=== PATIENT | male | born 1970 | race Caucasian/White ===

== ENCOUNTER → 2016-05-12 | Outpatient (CLI) | payer BC ==
--- NOTE | 2016-05-12 10:46 | US ---
EXAMINATION TYPE: US scrotum with doppler. Grayscale and color Doppler Duplex imaging performed of magn[facility] kitchen scrotum. DATE OF EXAM: 05/12/2016 10:37 AM COMPARISON: NONE CLINICAL HISTORY: N50.812 L Testicular Pain. Patient felt left testicular pain this morning and felt a lump, pea size, posterior left testicle. EXAM MEASUREMENTS: TESTICLES: Right Testicle: 4.2 x 1.9 x 3.2 cm Left Testicle: 3.5 x 1.8 x 2.5 cm EPIDIDYMIS HEAD: Right Epididymis: 1.1 x 0.9 cm Left Epididymis: 0.9 x 0.7 cm Doppler performed to assess for testicular vascularity; good bilateral color flow and waveforms are s een. TECHNOLOGIST IMPRESSION: scanned over area of pain and area of lump, no definite abnormality noted. Symmetry view shows no suspicious skin thickening bilaterally. Last few images an area of palpable ab normality show slightly prominent vessels. No suspicious mass is seen. IMPRESSION: Fairly unremarkable study
== END | disposition home or self-care (01) ==
LOC: RADUSWWP 10:08
PROVIDERS: ATTEND Family Medicine
DX: N50.812 Left testicular pain (principal)
CPT/HCPCS: 76870; 93975

== ENCOUNTER 2017-04-13 09:33 | Observation (INO) | payer BC ==
[2017-04-13] MEDS ORDERED: NITROGLYCERIN OINT 1 INCH/GM PACKET TOPICAL STA (10:04)
[2017-04-13] MEDS ORDERED: ASPIRIN 81 MG PO STA (10:04)
--- NOTE | 2017-04-13 10:06 | ED ---
General Adult HPI - General Chief complaint: Chest Pain Stated complaint: CHEST PAIN Time Seen by Provider: 04/13/17 09:52 Source: patient, RN notes reviewed Mode of arrival: ambulatory Limitations: no limitations - History of Present Illness Initial comments: Patient is a pleasant 46-year-old male presenting to the emergency Department with chest discomfort. Patient had minimal discomfort earlier this morning. Majority of symptoms started around an hour and a half ago. Discomfort is mild at this time. Patient does have some episodes of increasing discomfort that is short lasting. Discomfort feels like a cold ache. There is radiation towards left arm. No diaphoresis. Patient has had some very mild nausea and shortness of breath. No history of similar symptoms previously. - Related Data Home Medications Medication Instructions Recorded Confirmed Aspirin 81 mg PO BID 01/29/15 04/13/17 Cholecalciferol [Vitamin D3] 1,000 unit PO Q48H 01/29/15 04/13/17 Clindamycin Phosphate [Cleocin T] 1 applicate TOPICAL BID 01/29/15 04/13/17 Levothyroxine Sodium [Synthroid] 25 mcg PO DAILY 01/29/15 04/13/17 Loratadine [Claritin] 10 mg PO DAILY 01/29/15 04/13/17 Mometasone Furoate [Nasonex Nasal 2 spray EA NOSTRIL DAILY 01/29/15 04/13/17 [place]] Niacin [Niacin ER] 500 mg PO BID 01/29/15 04/13/17 Omeprazole [PriLOSEC] 20 mg PO DAILY PRN 01/29/15 04/13/17 Fish Oil/Dha/Epa [Fish Oil 1,200 1 cap PO DAILY 03/09/16 04/13/17 mg Fish Oil] Meclizine [Antivert] 12.5 mg PO DAILY PRN 03/09/16 04/13/17 Metoprolol Tartrate [Lopressor] 100 mg PO BID 03/09/16 04/13/17 Multivitamin/Iron/Folic Acid 1 tab PO DAILY 03/09/16 04/13/17 [Centrum Complete Multivit Tab] Atorvastatin Calcium [Lipitor] 40 mg PO HS 04/13/17 04/13/17 Meloxicam [Mobic] 15 mg PO DAILY 04/13/17 04/13/17 metFORMIN HCL [Glucophage] 500 mg PO BID 04/13/17 04/13/17 Previous Rx's Medication Instructions Recorded Naproxen 500 mg PO Q12HR 14 Days tab 03/09/16 Allergies Allergy/AdvReac Type Severity Reaction Status Date / Time Penicillins AdvReac Vomiting Verified 04/13/17 10:08 sulfamethoxazole AdvReac Vomiting Verified 04/13/17 10:08 [From Bactrim] trimethoprim [From Bactrim] AdvReac Vomiting Verified 04/13/17 10:08 Review of Systems ROS Statement: Those systems with pertinent positive or pertinent negative responses have been documented in the HPI. ROS Other: All systems not noted in ROS Statement are negative. Constitutional: Denies: fever Eyes: Denies: eye pain ENT: Denies: ear pain Respiratory: Denies: cough Cardiovascular: Reports: chest pain Endocrine: Reports: fatigue Gastrointestinal: Reports: nausea Genitourinary: Denies: dysuria Musculoskeletal: Denies: back pain Skin: Denies: rash Neurological: Denies: weakness Past Medical History Past Medical History: Coronary Artery Disease (CAD), GERD/Reflux, Hyperlipidemia , Hypertension, Thyroid Disorder History of Any Multi-Drug Resistant Organisms: None Reported Past Surgical History: Ablation, Heart Catheterization Past Psychological History: No Psychological Hx Reported Smoking Status: Never smoker Past Alcohol Use History: Occasional Past Drug Use History: None Reported General Exam Limitations: no limitations General appearance: alert, in no apparent distress Head exam: Present: atraumatic Eye exam: Present: normal appearance, PERRL ENT exam: Present: normal oropharynx Neck exam: Present: normal inspection Respiratory exam: Present: normal lung sounds bilaterally Cardiovascular Exam: Present: regular rate, normal rhythm Expanded Peripheral pulses: 2+: Radial (R), Radial (L), Dorsalis Pedis (R), Dorsalis Pedis (L) GI/Abdominal exam: Present: soft. Absent: tenderness Extremities exam: Present: normal inspection. Absent: pedal edema, calf tenderness Neurological exam: Present: alert Psychiatric exam: Present: normal affect, normal mood Skin exam: Present: normal color Course Vital Signs 04/13/17 04/13/17 04/13/17 09:37 09:53 11:00 Temperature 97.9 F Pulse Rate 80 78 68 Respiratory 18 18 18 Rate Blood Pressure 156/87 153/87 122/77 O2 Sat by Pulse 98 96 Oximetry EKG Findings - EKG Comments: EKG Findings:: Normal sinus rhythm 77. KS 156. QRS 86. QT 278. QTC 427. Normal axis. Normal QRS. No acute ST change. Medical Decision Making - Medical Decision Making Patient reevaluated and resting comfortably in bed. Case discussed with practitioner Sanjana, who will admit for Dr. hernandez, covering for Dr. Roland. Patient's symptoms are not clinically consistent with pneumonia. Patient will be covered with antibiotics for possible early pneumonia. Patient does not meet sepsis criteria at this time. - Lab Data Result diagrams: 04/13/17 09:50 04/13/17 09:50 Lab Results 04/13/17 04/13/17 04/13/17 Range/Units 09:50 09:50 09:50 WBC 12.4 H (3.8-10.6) k/uL RBC 5.42 (4.30-5.90) m/uL Hgb 15.4 (13.0-17.5) gm/dL Hct 47.3 (39.0-53.0) % MCV 87.4 (80.0-100.0) fL MCH 28.4 (25.0-35.0) pg MCHC 32.5 (31.0-37.0) g/dL RDW 13.2 (11.5-15.5) % Plt Count 333 (150-450) k/uL Neutrophils % 67 % Lymphocytes % 23 % Monocytes % 6 % Eosinophils % 1 % Basophils % 1 % Neutrophils # 8.3 H (1.3-7.7) k/uL Lymphocytes # 2.8 (1.0-4.8) k/uL Monocytes # 0.8 (0-1.0) k/uL Eosinophils # 0.2 (0-0.7) k/uL Basophils # 0.1 (0-0.2) k/uL PT (9.0-12.0) sec INR (<1.2) APTT (22.0-30.0) sec D-Dimer (<0.60) mg/L FEU Sodium 145 (137-145) mmol/L Potassium 4.9 (3.5-5.1) mmol/L Chloride 106 (98-107) mmol/L Carbon Dioxide 28 (22-30) mmol/L Anion Gap 11 mmol/L BUN 19 (9-20) mg/dL Creatinine 0.83 (0.66-1.25) mg/dL Est GFR (MDRD) Af Amer >60 (>60 ml/min/1.73 sqM) Est GFR (MDRD) Non-Af >60 (>60 ml/min/1.73 sqM) Glucose 99 (74-99) mg/dL Calcium 9.6 (8.4-10.2) mg/dL Magnesium 2.2 (1.6-2.3) mg/dL Total Bilirubin 0.5 (0.2-1.3) mg/dL AST 29 (17-59) U/L ALT 63 (21-72) U/L Alkaline Phosphatase 78 (38-126) U/L Total Creatine Kinase 72 (55-170) U/L CK-MB (CK-2) 0.6 (0.0-2.4) ng/mL CK-MB (CK-2) Rel Index 0.8 Troponin I <0.012 (0.000-0.034) ng/mL Total Protein 6.9 (6.3-8.2) g/dL Albumin 4.3 (3.5-5.0) g/dL 04/13/17 Range/Units 09:50 WBC (3.8-10.6) k/uL RBC (4.30-5.90) m/uL Hgb (13.0-17.5) gm/dL Hct (39.0-53.0) % MCV (80.0-100.0) fL MCH (25.0-35.0) pg MCHC (31.0-37.0) g/dL RDW (11.5-15.5) % Plt Count (150-450) k/uL Neutrophils % % Lymphocytes % % Monocytes % % Eosinophils % % Basophils % % Neutrophils # (1.3-7.7) k/uL Lymphocytes # (1.0-4.8) k/uL Monocytes # (0-1.0) k/uL Eosinophils # (0-0.7) k/uL Basophils # (0-0.2) k/uL PT 9.8 (9.0-12.0) sec INR 1.0 (<1.2) APTT 22.8 (22.0-30.0) sec D-Dimer <0.17 (<0.60) mg/L FEU Sodium (137-145) mmol/L Potassium (3.5-5.1) mmol/L Chloride (98-107) mmol/L Carbon Dioxide (22-30) mmol/L Anion Gap mmol/L BUN (9-20) mg/dL Creatinine (0.66-1.25) mg/dL Est GFR (MDRD) Af Amer (>60 ml/min/1.73 sqM) Est GFR (MDRD) Non-Af (>60 ml/min/1.73 sqM) Glucose (74-99) mg/dL Calcium (8.4-10.2) mg/dL Magnesium (1.6-2.3) mg/dL Total Bilirubin (0.2-1.3) mg/dL AST (17-59) U/L ALT (21-72) U/L Alkaline Phosphatase (38-126) U/L Total Creatine Kinase (55-170) U/L CK-MB (CK-2) (0.0-2.4) ng/mL CK-MB (CK-2) Rel Index Troponin I (0.000-0.034) ng/mL Total Protein (6.3-8.2) g/dL Albumin (3.5-5.0) g/dL - Radiology Data Radiology results: image reviewed (Chest x-ray has questionable density middle lobe and left perihilar could reflect developing pneumonia.) Disposition Clinical Impression: Chest pain Disposition: ADMITTED IP TO THIS [facility] Referrals: Dany Roland MD [Primary Care Provider] - 1-2 days Decision Time: 11:55
[2017-04-13 10:14] LABS: Basophils # (A) 0.1 k/uL (0-0.2); Basophils % (A) 1 %; Eosinophils # (A) 0.2 k/uL (0-0.7); Eosinophils % (A) 1 %; HCT 47.3 % (39.0-53.0); HGB 15.4 gm/dL (13.0-17.5); Lymphocytes # (A) 2.8 k/uL (1.0-4.8); Lymphocytes % (A) 23 %; MCH 28.4 pg (25.0-35.0); MCHC 32.5 g/dL (31.0-37.0); MCV 87.4 fL (80.0-100.0); Mean Platelet Volume 6.7; Monocytes # (A) 0.8 k/uL (0-1.0); Monocytes % (A) 6 %; Neutrophils # (A) 8.3 k/uL (1.3-7.7); Neutrophils % (A) 67 %; Platelet Count 333 k/uL (150-450); RBC 5.42 m/uL (4.30-5.90); RDW 13.2 % (11.5-15.5); WBC 12.4 k/uL (3.8-10.6)
[2017-04-13 10:23] LABS: ALT 63 U/L (21-72); AST 29 U/L (17-59); Albumin 4.3 g/dL (3.5-5.0); Alkaline Phosphatase 78 U/L (38-126); Anion Gap 11 mmol/L; Blood Urea Nitrogen 19 mg/dL (9-20); Calcium 9.6 mg/dL (8.4-10.2); Carbon Dioxide 28 mmol/L (22-30); Chloride 106 mmol/L (98-107); Glucose 99 mg/dL (74-99); Magnesium 2.2 mg/dL (1.6-2.3); Potassium 4.9 mmol/L (3.5-5.1); Sodium 145 mmol/L (137-145); Total Bilirubin 0.5 mg/dL (0.2-1.3); Total Protein 6.9 g/dL (6.3-8.2)
[2017-04-13 10:29] LABS: D-Dimer <0.17 mg/L FEU (<0.60); Partial Thromboplastin Time 22.8 sec (22.0-30.0); Prothrombin Time 9.8 sec (9.0-12.0)
--- NOTE | 2017-04-13 10:31 | XR ---
EXAMINATION TYPE: XR chest 2V DATE OF EXAM: 04/13/2017 COMPARISON: NONE HISTORY: Chest pain TECHNIQUE: Frontal and lateral views of the chest are obtained. FINDINGS: Increased density within the region of the right middle lobe as well as the left perihilar region may reflect developing pneumonia or pneumonitis. No evidence for pneumothorax. No pleural effusion. The cardiac silhouette size is within normal limits. The osseous structures are grossly intact. IMPRESSION: 1. Increased density within the region of the right middle lobe as well as the left perihilar region may reflect developing pneumonia or pneumonitis.
[2017-04-13 10:40] LABS: Creatine Kinase 72 U/L (55-170)
[2017-04-13 10:54] LABS: Creatine Kinase MB 0.6 ng/mL (0.0-2.4); Troponin I <0.012 ng/mL (0.000-0.034)
[2017-04-13] MEDS ORDERED: NITROGLYCERIN SL TABS 0.4 MG TAB SUBLINGUAL PRN (11:56)
[2017-04-13] MEDS ORDERED: PNEUMONIA PROTOCOL UTILIZED 1 EACH MISC PO PRN (11:57)
[2017-04-13] MEDS ORDERED: LEVOFLOXACIN 750MG-D5W PMX 750 MG in DEXTROSE/WATER 1 150ML.BAG IVPB STA (11:57)
[2017-04-13] MEDS: NITROGLYCERIN OINT 1 INCH/GM PACKET TOPICAL SCH ×2 (12:24→22:54)
[2017-04-13] MEDS ORDERED: PANTOPRAZOLE 40 MG TABLET PO PRN (15:31)
[2017-04-13 16:28] LABS: Creatine Kinase 55 U/L (55-170)
[2017-04-13 16:42] LABS: Creatine Kinase MB 0.3 ng/mL (0.0-2.4); Troponin I <0.012 ng/mL (0.000-0.034)
--- NOTE | 2017-04-13 16:52 | HP ---
HISTORY AND PHYSICAL DATE OF ADMISSION: 04/13/17 PRESENTING COMPLAINT: Chest pain. HISTORY OF PRESENTING COMPLAINT: Pleasant [address] Roland. Chronic stable medical conditions include GERD, hyperlipidemia, hypothyroid, irritable bowel syndrome, diabetes, and herniated lumbar disc. The patient has a history of paroxysmal supraventricular tachycardia. Has had 2 attempts at ablation in [facility]. The patient had used beta blockers and had symptoms on and off for some time in the past. Today in the morning around 6 o'clock, the patient was getting dressed. He felt a little bit off. When he went to work he started not feeling well and noted some chest discomfort coming in waves. There was no shortness of breath, minimal dizziness. No perspiration though he had some hot flashes, lasted for a few hours, decided to come into the ER. The patient does not remember having had a cardiac catheterization, but has a very strong family history of coronary artery disease. The patient is seen by me in the ER. REVIEW OF SYSTEMS: CONSTITUTIONAL: Tired. HEENT: None. RESPIRATORY: As above. CARDIOVASCULAR: As above. GASTROINTESTINAL: Heartburn. GENITOURINARY: None. MUSCULOSKELETAL: Some lower back pain from herniated disc. DERMATOLOGICAL: None. HEMATOLOGIC: None. LYMPHATIC: None. PSYCHIATRY: None. NEUROLOGICAL: None. PAST MEDICAL HISTORY: GERD, hyperlipidemia, hypothyroid, paroxysmal supraventricular tachycardia with multiple attempts at ablation in the past in [facility]. Irritable bowel syndrome, diabetes, lumbar disc herniated, bilateral feet neuromas. PAST SURGICAL HISTORY: Ablation, cardiac catheterization. SOCIAL HISTORY: with 2 children. Employed. No smoking. Alcohol occasionally. FAMILY HISTORY: Brother at age of 42 from a [place]. Father had coronary artery disease. Both the grandparents have coronary artery disease. HOME MEDICATIONS: 1. Mobic 50 mg p.o. daily. 2. Antivert 12.5 p.o. daily p.r.n. 3. Lipitor 40 mg q.h.s. 4. Glucophage 100 mg p.o. b.i.d. 5. Prilosec 20 mg p.o. daily p.r.n. 6. Niacin ER 500 mg p.o. b.i.d. 7. Naproxen 100 mg p.o. q.12. 8. Centrum Complete 1 tab p.o. daily. 9. Nasonex 2 sprays each nostril daily. 10.Lopressor 100 mg p.o. b.i.d. 11.Claritin 10 mg p.o. daily. 12.Synthroid 25 mcg p.o. daily. 13.Fish oil 12 from 1200 mg p.o. daily. 14.Clindamycin topical b.i.d. 15.Vitamin D3 1000 units p.o. q.48 hours. 16.Aspirin 81 mg p.o. b.i.d. ALLERGIES: PENICILLIN, BACTRIM. PHYSICAL EXAMINATION: Temperature 97.9, pulse 86, respiratory rate 18, blood pressure 156/87, pulse ox 98% on room air. GENERAL APPEARANCE: Well built, BMI 31.9, lying in bed, not in distress. EYES: Pupils equal. Conjunctivae normal.. HEENT: Oral cavity normal. NECK: JVD not raised. Mass not palpable. RESPIRATORY: Effort normal. Lungs are clear. CARDIOVASCULAR: First and second sounds normal. No edema. ABDOMEN: Soft, nontender. Liver and spleen not palpable. LYMPHATIC: No lymph not palpable in the neck or axillae. PSYCHIATRY: Alert and oriented x3. Mood and affect normal. NEUROLOGICAL: Pupils equal. Cranial nerves grossly intact. Power and sensation grossly intact. INVESTIGATIONS: White count 12.5, hemoglobin 13.4, potassium 4.9, BUN and creatinine normal. EKG normal sinus rhythm. ASSESSMENT: 1. This is a patient with very strong family history presents with some atypical sounding chest pain. Has a history of paroxysmal supraventricular tachycardia with 2 failed ablations in the past. Given the very strong family history, this could well be unstable angina and needs to be further ruled out. Initial troponin is negative. We will keep the patient on telemetry to rule out any arrhythmias. 2. Gastroesophageal reflux disease. 3. Hyperlipidemia. 4. Hypothyroid. 5. Irritable bowel syndrome. PLAN: Serial cardiac enzymes in place, patient on telemetry. Home medications resumed. Will hold off patient is on both Claritin and Antivert. Will hold off both. Hold off the NSAIDs for right now. Cardiology was consulted. Care was discussed with the patient. MMODL / IJN: [id number] /
[2017-04-13 17:24] LABS: Glucose,Whole Blood 120 mg/dL (75-99)
[2017-04-13 20:33] LABS: Glucose,Whole Blood 141 mg/dL (75-99)
[2017-04-13] MEDS: metFORMIN 500 MG TAB PO SCH (20:49)
[2017-04-13] MEDS: NIACIN TR 250 MG CAPSULE.ER PO SCH (20:49)
[2017-04-13] MEDS: METOPROLOL TARTRATE 50 MG TAB PO SCH (20:49)
[2017-04-13] MEDS: ASPIRIN 81 MG PO SCH (20:49)
[2017-04-13] MEDS ORDERED: ATORVASTATIN 40 MG TAB PO SCH (21:00)
[2017-04-13 22:05] LABS: Creatine Kinase 49 U/L (55-170)
[2017-04-13 22:18] LABS: Creatine Kinase MB 0.2 ng/mL (0.0-2.4); Troponin I <0.012 ng/mL (0.000-0.034)
[2017-04-14] MEDS: NITROGLYCERIN OINT 1 INCH/GM PACKET TOPICAL SCH ×2 (00:17→05:20)
[2017-04-14 02:17] LABS: Cholesterol 134 mg/dL (<200); HDL Cholesterol 34 mg/dL (40-60); LDL Cholesterol,Calculated 69 mg/dL (0-99); Triglycerides 153 mg/dL (<150)
[2017-04-14] MEDS ORDERED: LEVOTHYROXINE 25 MCG TAB PO SCH (06:30)
[2017-04-14 08:06] LABS: Glucose,Whole Blood 107 mg/dL (75-99)
[2017-04-14] MEDS ORDERED: DOBUTamine DRIP for NUC MED 250 MG in DEXTROSE/WATER 1 250ML.BAG IV ONE (08:34)
[2017-04-14 08:39] VITALS: RESP 16
--- NOTE | 2017-04-14 08:43 | XR ---
EXAMINATION TYPE: XR chest 2V DATE OF EXAM: 04/14/2017 COMPARISON: Prior chest x-ray 04/13/2017 HISTORY: Pneumonia TECHNIQUE: Frontal and lateral views of the chest are obtained. FINDINGS: Bandlike area of increased attenuation present in the right middle lobe likely reflects at electasis. No pneumothorax or pleural effusion. Cardiac mediastinal silhouette, pulmonary vascularity and loulou are stable. There are overlying cardiac leads. No evident airspace disease. IMPRESSION: Some minimal atelectasis.
--- NOTE | 2017-04-14 08:46 | P.CRDCN ---
History of Present Illness Consult date: 04/14/17 History of present illness: Mr. Benntet is a pleasant 46-year-old male with past medical history significant for diabetes mellitus, dyslipidemia, paroxysmal supraventricular tachycardia with 2 failed ablations in [place] and gastroesophageal reflux disease. He follows with Dr. Burton in the office. He was getting ready for work this morning and drying off after a shower when he noticed a sensation in his chest of discomfort. He describes it as a tender feeling right near the nipple. The pain has been intermittent in nature all day with varying intensity. He denies associated shortness of breath, dizziness, nausea, vomiting, palpitations or diaphoresis. He does however recall at one point having some tingling in his left hand when he was feeling the pain. EKG on arrival is sinus mechanism with no acute ST or T-wave abnormalities. Chest xray shows increased density rightmiddle lobe as well as left perihilar region , possibly reflective of pneumonia. He has been started on antibiotics and a repeat xray has been ordered. Laboratory data reviewed, WBC 12.4, hgb 15.4, plt 333, d-dimer negative, potassium 4.9, magnesium 2.2, creatinine 0.83, cardiac enzymes negative x3 Current cardiac medications include aspirin 81 mg daily, atorvastatin 40 mg daily, niacin 500 mg BID and lopressor 100 mg BID. Most recent echocardiogram done in the office 11/2014 shows preserved LV function with EF 60% with mild MR and TR. He also had a negative Lexiscan stress test at that time. Review of Systems CONSTITUTIONAL: Denies fever. Denies chills. EYES: Denies blurred vision. Denies vision changes. Denies eye pain. EARS, NOSE, MOUTH & THROAT: Denies headache. Denies sore throat. Denies ear pain. CARDIOVASCULAR: Complains of chest tenderness at the left nipple. Denies shortness of breath. Denies orthopnea. Denies PND. Denies palpitations. RESPIRATORY: Denies cough. GASTROINTESTINAL: Denies abdominal pain. Denies diarrhea. Denies constipation. Denies nausea. Denies vomiting. MUSCULOSKELETAL: Denies myalgias. INTEGUMENTARY: Denies pruitis. Denies rash. NEUROLOGIC: Denies numbness. Denies tingling. Denies weakness. PSYCHIATRIC: Denies anxiety. Denies depression. ENDOCRINE: Denies fatigue. Denies weight change. Denies polydipsia. Denies polyurina. GENITOURINARY: Denies burning, hematuria or urgency with micturation. HEMATOLOGIC: Denies history of anemia. Denies bleeding. Past Medical History Past Medical History: GERD/Reflux, Hyperlipidemia, Pneumonia, Thyroid Disorder Additional Past Medical History / Comment(s): PSVT, IBS, NIDDM type II-pt states "borderline" and place on medication early, vertigo occasionally with sinus problems, sinus infections, ear infections, pneumonias, bronchitis, protruding lumbar discs/back pain, bilateral feet neuromas (R foot worse). History of Any Multi-Drug Resistant Organisms: None Reported Past Surgical History: Ablation, Heart Catheterization Additional Past Surgical History / Comment(s): Past attempted cardiac ablations x2, EGD, colonoscopies, lower back injections. Past Anesthesia/Blood Transfusion Reactions: No Reported Reaction Smoking Status: Never smoker - Past Family History Brother(s) Family Medical History: Myocardial Infarction ([place]) Additional Family Medical History / Comment(s): Brother at the age of 42 yrs from a [place]. He also was a smoker, drinker and used drugs per pt. Father Family Medical History: CVA/TIA, Myocardial Infarction ([place]) Additional Family Medical History / Comment(s): Father had multiple MIs. He had a CVA. He in his sleep at the age of 64 yrs. Mother Family Medical History: Hypertension, Myocardial Infarction ([place]) Additional Family Medical History / Comment(s): Mother had depression, IBS and MIs. She of interstinal ischemia at the age of 60 yrs. Medications and Allergies Home Medications Medication Instructions Recorded Confirmed Type Aspirin 81 mg PO BID 01/29/15 04/13/17 History Cholecalciferol [Vitamin D3] 1,000 unit PO Q48H 01/29/15 04/13/17 History Clindamycin Phosphate [Cleocin T] 1 applicate TOPICAL BID 01/29/15 04/13/17 History Levothyroxine Sodium [Synthroid] 25 mcg PO DAILY 01/29/15 04/13/17 History Loratadine [Claritin] 10 mg PO DAILY 01/29/15 04/13/17 History Mometasone Furoate [Nasonex Nasal 2 spray EA NOSTRIL DAILY 01/29/15 04/13/17 History [place]] Niacin [Niacin ER] 500 mg PO BID 01/29/15 04/13/17 History Omeprazole [PriLOSEC] 20 mg PO DAILY PRN 01/29/15 04/13/17 History Fish Oil/Dha/Epa [Fish Oil 1,200 1 cap PO DAILY 03/09/16 04/13/17 History mg Fish Oil] Meclizine [Antivert] 12.5 mg PO DAILY PRN 03/09/16 04/13/17 History Metoprolol Tartrate [Lopressor] 100 mg PO BID 03/09/16 04/13/17 History Multivitamin/Iron/Folic Acid 1 tab PO DAILY 03/09/16 04/13/17 History [Centrum Complete Multivit Tab] Naproxen 500 mg PO Q12HR 14 Days tab 03/09/16 04/13/17 Rx Atorvastatin Calcium [Lipitor] 40 mg PO HS 04/13/17 04/13/17 History Meloxicam [Mobic] 15 mg PO DAILY 04/13/17 04/13/17 History metFORMIN HCL [Glucophage] 500 mg PO BID 04/13/17 04/13/17 History Allergies Allergy/AdvReac Type Severity Reaction Status Date / Time Penicillins AdvReac Vomiting Verified 04/13/17 10:08 sulfamethoxazole AdvReac Vomiting Verified 04/13/17 10:08 [From Bactrim] trimethoprim [From Bactrim] AdvReac Vomiting Verified 04/13/17 10:08 Physical Exam Vitals: Vital Signs Temp Pulse Pulse Resp BP BP Pulse Ox 04/13/17 13:50 97.8 F 78 18 140/74 93 L 04/13/17 13:41 97.4 F L 81 18 118/61 98 04/13/17 11:57 78 18 130/68 98 04/13/17 11:00 68 18 122/77 96 04/13/17 09:53 78 18 153/87 04/13/17 09:37 97.9 F 80 18 156/87 98 Intake and Output 04/12/17 04/13/17 04/13/17 22:59 06:59 14:59 Other: Weight 100.8 kg Patient Weight 04/14/17 06:59 Weight 100.8 kg Blood pressure 146/77 heart rate 72 afebrile GENERAL: This is a 46-year-old male in no apparent distress at the time of my examination. HEENT: Head is atraumatic, normocephalic. Pupils are equal, round. Sclerae anicteric. Conjunctivae are clear. Mucous membranes of the mouth are moist. Neck is supple. There is no jugular venous distention. No carotid bruit is heard. LUNGS: Clear to auscultation no wheezes, rales or rhonchi. No chest wall tenderness is noted on palpation or with deep breathing. HEART: Regular rate and rhythm without murmurs, rubs or gallops. S1 and S2 heard. ABDOMEN: Soft, nontender. Bowel sounds are heard. No organomegaly noted. EXTREMITIES: 2+ peripheral pulses with no evidence of peripheral edema and no calf tenderness noted. NEUROLOGIC: Patient is awake, alert and oriented x3. Results 04/13/17 09:50 04/13/17 09:50 Cardiac Enzymes 04/13/17 04/13/17 Range/Units 09:50 09:50 AST 29 (17-59) U/L CK-MB (CK-2) 0.6 (0.0-2.4) ng/mL Troponin I <0.012 (0.000-0.034) ng/mL Coagulation 04/13/17 Range/Units 09:50 PT 9.8 (9.0-12.0) sec APTT 22.8 (22.0-30.0) sec CBC 04/13/17 Range/Units 09:50 WBC 12.4 H (3.8-10.6) k/uL RBC 5.42 (4.30-5.90) m/uL Hgb 15.4 (13.0-17.5) gm/dL Hct 47.3 (39.0-53.0) % Plt Count 333 (150-450) k/uL Comprehensive Metabolic Panel 04/13/17 Range/Units 09:50 Sodium 145 (137-145) mmol/L Potassium 4.9 (3.5-5.1) mmol/L Chloride 106 (98-107) mmol/L Carbon Dioxide 28 (22-30) mmol/L BUN 19 (9-20) mg/dL Creatinine 0.83 (0.66-1.25) mg/dL Glucose 99 (74-99) mg/dL Calcium 9.6 (8.4-10.2) mg/dL AST 29 (17-59) U/L ALT 63 (21-72) U/L Alkaline Phosphatase 78 (38-126) U/L Total Protein 6.9 (6.3-8.2) g/dL Albumin 4.3 (3.5-5.0) g/dL Current Medications Generic Name Dose Route Start Last Admin Trade Name Freq PRN Reason Stop Dose Admin Aspirin 81 mg 04/13/17 21:00 Aspirin PO BID REPLACED BY [facility] Atorvastatin Calcium 40 mg 04/13/17 21:00 Lipitor PO HS DASHA Levofloxacin 750 mg 04/14/17 12:00 Levaquin PO 04/19/17 12:01 Q24H REPLACED BY [facility] Miscellaneous Information 1 each 04/13/17 11:57 Pneumonia Protocol Utilized PO ONCE PRN Per Protocol Nitroglycerin 1 inch 04/13/17 12:00 04/13/17 12:24 Nitro-Bid Oint TOPICAL 1 inch Q6HR REPLACED BY [facility] Administration Nitroglycerin 0.4 mg 04/13/17 11:56 Nitrostat SUBLINGUAL Q5M PRN Chest Pain Non-Formulary Medication 100 mg 04/13/17 21:00 Metoprolol Tartrate [Lopressor] PO BID DASHA Non-Formulary Medication 500 mg 04/13/17 21:00 Niacin [Niacin Er] PO BID REPLACED BY [facility] Intake and Output 04/12/17 04/13/17 04/13/17 22:59 06:59 14:59 Other: Weight 100.8 kg Patient Weight 04/14/17 06:59 Weight 100.8 kg 04/13/17 09:50 04/13/17 09:50 Assessment and Plan Assessment: ASSESSMENT 1. Chest pain, atypical 2. Dyslipidemia 3. History of paroxysmal supraventricular tachycardia 4. Obesity 5. Diabetes mellitus PLAN Obtain 2D echocardiogram and doppler study to assess cardiac structure and function. Perform dobutamine stress echocardiogram to evaluate for stress induced ischemia. The above impression and plan of care have been discussed and directed by the signing physician. Yamile Qiu, nurse practitioner, acting as scribe for signing physician.
[2017-04-14] MEDS ORDERED: MELOXICAM 7.5 MG TAB PO SCH (09:00)
[2017-04-14] MEDS ORDERED: ASPIRIN 325 MG TAB PO SCH (09:00)
[2017-04-14] MEDS: ASPIRIN 81 MG PO SCH (10:37)
[2017-04-14] MEDS: metFORMIN 500 MG TAB PO SCH (10:37)
[2017-04-14] MEDS: METOPROLOL TARTRATE 50 MG TAB PO SCH (10:38)
[2017-04-14] MEDS: NIACIN TR 250 MG CAPSULE.ER PO SCH (10:51)
--- NOTE | 2017-04-14 10:53 | ECHOS ---
STRESS ECHOCARDIOGRAM INDICATIONS: Chest pain. BASELINE HEART RATE: 85. BASELINE BLOOD PRESSURE: 117/55 MAXIMUM HEART RATE: 145 MAXIMUM BLOOD PRESSURE: 148/54 85% MPHR: 145 100% MPHR: 172 MAXIMUM STAGE REACHED: 2 TOTAL EXERCISE TIME: 4:30 CLINICAL INFORMATION: Baseline EKG shows sinus rhythm with nonspecific ST-T wave changes. Patient was given intravenous dobutamine over a period of 4.5 minutes as per protocol, achieving 85% of predicted maximal heart rate without chest pain or diagnostic ST-segment depression. Patient had short self-limited run of atrial tachycardia during dobutamine infusion. CONCLUSION: 1. Negative stress test by EKG criteria. 2. Negative dobutamine echo. MMODL / IJN: [id number] /
[2017-04-14 11:30] VITALS: BP 149/81; TEMP 98.9
[2017-04-14] MEDS ORDERED: LEVOFLOXACIN 750 MG TAB PO SCH (12:00)
[2017-04-14 12:05] LABS: Glucose,Whole Blood 111 mg/dL (75-99)
[2017-04-14 12:09] VITALS: PULSE 65
--- NOTE | 2017-04-14 13:02 | DS ---
DISCHARGE SUMMARY DATE OF ADMISSION: 04/13/2017 DATE OF DISCHARGE: 04/14/2017 FINAL DIAGNOSES: 1. Left anterior chest wall pain possibly musculoskeletal with localized pain. 2. Gastroesophageal reflux disease. 3. Hyperlipidemia. 4. Hypothyroid. 5. Irritable bowel syndrome. HOSPITAL COURSE: This patient with a strong family history presented with some chest pain. Troponins were negative. Did undergo dobutamine stress echocardiogram that came back to be negative. The patient has localized pain at the anterior chest wall at the mid clavicular line just below the ribcage, reproducible. On examination, reproducible chest pain as above. INVESTIGATIONS: As above. The patient's LDL was 69. DISCHARGE MEDICATIONS: 1. Aspirin 81 mg p.o. b.i.d. 2. Vitamin D3, 1000 units p.o. q.48 hours. 3. Clindamycin topical b.i.d. as before. 4. Synthroid 25 mcg a day. 5. Nasonex 2 sprays each nostril daily. 6. Niacin ER 500 mg p.o. b.i.d. 7. Prilosec 20 mg p.o. daily p.r.n. 8. Fish oil 1200 mg p.o. daily. 9. Lopressor 100 mg p.o. b.i.d. 10.Centrum Complete 1 tab p.o. daily. 11.Lipitor 40 mg q.h.s. 12.Mobic 15 mg p.o. daily. 13.Glucophage 500 mg p.o. b.i.d. Follow up with Dr. Roland in one week. Follow up with Dr. Valarie Burton per him. MMODL / IJN: [id number] /
[2017-04-14 14:30] LABS: Hemoglobin A1C 5.7 % (4.0-6.0)
--- NOTE | 2017-04-17 08:46 | ECHOF ---
Referral Reason:chest pain MEASUREMENTS -------- HEIGHT: 182.9 cm WEIGHT: 100.7 kg BP: IVSd: 1.1 cm (0.6 - 1.1) LVIDd: 4.2 cm (3.9 - 5.3) LVPWd: 1.1 cm (0.6 - 1.1) IVSs: 1.6 cm LVIDs: 2.3 cm LVPWs: 1.8 cm Ao Diam: 2.9 cm (2.0 - 3.7) AV Cusp: 2.3 cm (1.5 - 2.6) LA Diam: 3.4 cm (2.7 - 3.8) MV EXCURSION: 13.883 mm (> 18.000) MV EF SLOPE: 82 mm/s (70 - 150) EPSS: 0.2 cm MV E Abdiel: 0.74 m/s MV DecT: 202 ms MV A Abdiel: 0.59 m/s MV E/A Ratio: 1.25 RAP: 5.00 mmHg RVSP: 12.23 mmHg FINDINGS -------- Sinus rhythm. This was a technically good study. The left ventricular size is normal. Left ventricular wall thickness is normal. Overall left vent ricular systolic function is normal with, an EF between 55 - 60 %. The right ventricle is normal in size and function. The left atrium is normal in size. The right atrium is normal in size. The aortic valve is trileaflet, and appears structurally normal. No aortic stenosis or regurgitation. There is trace mitral regurgitation. Trace tricuspid regurgitation present. Pulmonic valve appears structurally normal. The aortic root size is normal. The pericardium is normal. CONCLUSIONS -------- 1. Sinus rhythm. 2. This was a technically good study. 3. The left ventricular size is normal. 4. Left ventricular wall thickness is normal. 5. Overall left ventricular systolic function is normal with, an EF between 55 - 60 %. 6. The right ventricle is normal in size and function. 7. The left atrium is normal in size. 8. The right atrium is normal in size. 9. The aortic valve is trileaflet, and appears structurally normal. No aortic stenosis or regurgitati on. 10. There is trace mitral regurgitation. 11. Trace tricuspid regurgitation present. 12. Pulmonic valve appears structurally normal. 13. The aortic root size is normal. 14. The pericardium is normal. HEALTH PROGRAM DIRECTOR: Kaylin Ojeda RDCS
== END 2017-04-14 14:24 | disposition home or self-care (01) ==
LOC: EC 09:33 → 3OBS 11:56
PROVIDERS: ADMIT Hospitalist; ATTEND Hospitalist
DX: R07.89 Other chest pain (principal); R23.2 Flushing; R20.2 Paresthesia of skin; I47.1 Supraventricular tachycardia; E03.9 Hypothyroidism, unspecified; Z82.49 Family history of ischemic heart disease and other diseases of the circulatory system; K21.9 Gastro-esophageal reflux disease without esophagitis; E78.5 Hyperlipidemia, unspecified; M51.26 Other intervertebral disc displacement, lumbar region; K58.9 Irritable bowel syndrome, unspecified; E11.9 Type 2 diabetes mellitus without complications; I10 Essential (primary) hypertension; E66.9 Obesity, unspecified; Z68.31 Body mass index [BMI] 31.0-31.9, adult; D36.13 Benign neoplasm of peripheral nerves and autonomic nervous system of lower limb, including hip; I25.10 Atherosclerotic heart disease of native coronary artery without angina pectoris; Z79.82 Long term (current) use of aspirin; Z79.84 Long term (current) use of oral hypoglycemic drugs; Z79.1 Long term (current) use of non-steroidal anti-inflammatories (NSAID); Z79.51 Long term (current) use of inhaled steroids; Z79.899 Other long term (current) drug therapy; Z88.0 Allergy status to penicillin; Z88.1 Allergy status to other antibiotic agents; Z88.2 Allergy status to sulfonamides
CPT/HCPCS: 36415; 93005; 93017; 93306; 93350; 85379; 80061; 80053; 82550; 82553; 83735; 84484; 85025; 85610; 85730; 87040; 83036; 71046 ×2; 99285; 96365; G0378 ×2; J1956; J1250

== ENCOUNTER 2018-03-05 07:35 | Day surgery (SDC) | payer BC ==
[2018-03-01 14:25] VITALS: BMI 34.4
[~2018-03-05 07:35] MED LIST: LACTATED RINGERS 1,000 ML IV SCH; LIDOCAINE 1% 20 ML VIAL (10MG/ML) FOR IV START INTRADERMA PRN
[2018-03-05 08:52] VITALS: RESP 16; TEMP 97.4
[2018-03-05 08:54] LABS: Glucose,Whole Blood 100 mg/dL (75-99)
[2018-03-05] MEDS ORDERED: PROPOFOL 10 MG/ML 20 ML VIAL IV ONE (09:11)
[2018-03-05 09:40] VITALS: BP 109/70; PULSE 71
--- NOTE | 2018-03-05 09:46 | P.PCN ---
Date of Procedure: 03/05/18 Procedure(s) Performed: Procedure: Colonoscopy and polypectomy. Preoperative diagnosis: Screening for neoplasia. Postoperative diagnosis: Small sigmoid polyp snared, otherwise, exam to the cecum within normal limits. Preparation: HalfLytely prep. Sedation: Was provided by anesthesia. Brief clinical history: The patient is a 47-year-old male who is scheduled for this evaluation for screening for neoplasia. The patient has no abdominal complaints, bleeding or anemia. He does have history of diarrhea predominant irritable bowel syndrome and there is family history of irritable bowel syndrome and intestinal infarction in his mother. No family history of colon cancer. Procedure: With the patient on his left lateral decubitus position and after informed consent and adequate sedation, the perianal area was inspected and it did not show any fissures or fistulas. There were no masses felt on digital rectal examination. The Olympus CFQ 160L video colonoscope was then inserted in the rectum in the usual fashion and advanced to the cecum. There was a small polyp in the distal sigmoid which I snared and retrieved by suction, but there were no large polyps or cancer. The mucosa appeared healthy. I retroflexed the endoscope in the rectum before the endoscope was withdrawn. The patient tolerated the procedure well. Plan: The patient was reassured. He will follow up with you as planned and I recommended repeat exam in 5 years.
== END 2018-03-05 10:29 | disposition home or self-care (01) ==
LOC: ORWHC2ENDO 07:35
DX: Z12.11 Encounter for screening for malignant neoplasm of colon (principal); K63.5 Polyp of colon; K58.9 Irritable bowel syndrome, unspecified; I10 Essential (primary) hypertension; E78.5 Hyperlipidemia, unspecified; E11.9 Type 2 diabetes mellitus without complications; I47.1 Supraventricular tachycardia; K21.9 Gastro-esophageal reflux disease without esophagitis; E07.9 Disorder of thyroid, unspecified; Z88.1 Allergy status to other antibiotic agents; Z88.0 Allergy status to penicillin; Z88.2 Allergy status to sulfonamides; Z79.82 Long term (current) use of aspirin; Z79.84 Long term (current) use of oral hypoglycemic drugs; Z79.890 Hormone replacement therapy
CPT/HCPCS: 88305; 45385; J2704

== ENCOUNTER → 2021-04-29 | Outpatient (CLI) | payer MEDICARE, OTHER ==
--- NOTE | 2021-04-29 10:53 | MR ---
EXAMINATION TYPE: MR lumbar spine wo con DATE OF EXAM: 04/29/2021 COMPARISON: None HISTORY: LBP, LLE radiculopathy. Hx of falls TECHNIQUE: Multiplanar, multisequence images of the lumbar spine were acquired without IV contrast. L1-L2: Normal disc appearance without desiccation. No herniation, protrusion or disc bulging. No ca nal stenosis is present. Foramina are patent bilaterally. L2-L3: Normal disc appearance without desiccation. No herniation, protrusion or disc bulging. No ca nal stenosis is present. Foramina are patent bilaterally. L3-L4: Normal disc appearance without desiccation. No herniation, protrusion or disc bulging. No ca nal stenosis is present. Foramina are patent bilaterally. L4-L5: Normal disc appearance without desiccation. No herniation, protrusion or disc bulging. No ca nal stenosis is present. Foramina are patent bilaterally. There is some facet arthropathy with hyper trophy ligamentum flavum causing minimal posterior lateral mass effect on the thecal sac. L5-S1: There is increased signal at the posterior aspect of the disc consistent with an annular tear, posterior disc bulge is present, there may be contact with the proximal S1 nerve roots greater on th e left, axial image #1. No significant foraminal encroachment. There is some mild facet arthropathy c hange. Lumbar segments are intact. No paraspinal masses are identified. Conus medullaris has a normal appe arance. Lumbar vertebral bodies show preserved height, alignment, there is minimal endplate discogeni c marrow signal change, spondylosis at multiple levels. Loss of disc signal is present at L5-S1 consi stent with disc desiccation. There is a probable hemangioma, focus of increased signal on T1 and T2-w eighted images within the L4 vertebral body and T12 vertebral body. No significant spinal stenosis. IMPRESSION: Degenerative disc disease and facet arthropathy as described
== END | disposition home or self-care (01) ==
LOC: RADMRIMAIN 09:09
PROVIDERS: ATTEND Physical Medicine & Rehabilitation
DX: M51.17 Intervertebral disc disorders with radiculopathy, lumbosacral region (principal); M47.27 Other spondylosis with radiculopathy, lumbosacral region
CPT/HCPCS: 72148

== ENCOUNTER 2022-08-09 06:03 | Day surgery (SDC) | payer OTHER ==
[2022-08-04 15:29] VITALS: BMI 34.8
[2022-08-09] MEDS ORDERED: LACTATED RINGERS 1,000 ML IV SCH (06:20)
[2022-08-09] MEDS ORDERED: LIDOCAINE 1% (10MG/ML) FOR IV START INTRADERMA PRN (06:20)
[2022-08-09] MEDS ORDERED: LACTATED RINGERS 1,000 ML IV ONE (06:20)
[2022-08-09 06:27] VITALS: TEMP 98
[2022-08-09 06:38] LABS: Glucose,Whole Blood 109 mg/dL (70-110)
[2022-08-09] MEDS ORDERED: LIDOCAINE 2% INJ 20 MG/ML (2 ML VIAL) ONE (07:00)
[2022-08-09] MEDS ORDERED: PROPOFOL 10 MG/ML 20 ML VIAL IV ONE (07:00)
--- NOTE | 2022-08-09 07:20 | P.PCN ---
Date of Procedure: 08/09/22 Procedure(s) Performed: Brief history: Patient is a pleasant 51-year-old white male scheduled for an elective upper endoscopy as well as colonoscopy as a part of evaluation of I deficiency anemia/GERD and screening for colon cancer Procedure performed: Esophagogastroduodenoscopy with biopsy Colonoscopy Preoperative diagnosis: GERD/and deficiency anemia Screening for colon cancer Anesthesia: [facility] [place] Procedure: After informed consent was obtained from the patient was brought into the endoscopy unit and IV sedation was administered by anesthesia under continuous monitoring. Initially upper endoscopy was done. The Olympus GF 160 video endoscope was inserted inserted into the mouth and esophagus intubated without any difficulty and was gradually advanced into the stomach and duodenum and carefully examined. The bulb and second part of the duodenum appeared normal. Biopsies were done from the duodenum to rule out celiac disease. The scope was then withdrawn into the stomach adequately insufflated with air and upon careful examination the antrum and body, cardia and fundus appeared normal. The scope was then withdrawn into the esophagus. The GE junction was located at 40 cm to the incisors. It appeared regular with no erythema erosions or ulcerations. Rest of the esophagus appeared normal. Patient tolerated the procedure well. At this time the patient continued to remain sedation. Initial digital rectal examination was normal. Olympus CF 160 video colonoscope was then inserted into the rectum and gradually advanced to the cecum without any difficulty. Careful examination was performed as the scope was gradually being withdrawn. The prep was excellent. The cecum, ascending colon, transverse colon, descending colon, sigmoid colon and rectum appeared normal. Retroflexion was performed in the rectum and small internal hemorrhoids were noted. Patient tolerated the pr ocedure well. Impression: 1. Upper endoscopy was within normal limits with no evidence of esophagitis or peptic ulcer disease 2. Colonoscopy was within normal normal limits with no evidence of colorectal neoplasia except for small internal hemorrhoids Recommendations: Findings of this examination were discussed with the patient as well as his family. He was advised to follow with the biopsy results. Continue with omeprazole 20 mg daily and follow antireflux measures. Recommend repeat colonoscopy in 10 years.
[2022-08-09 07:42] VITALS: BP 104/70; PULSE 88; RESP 16
== END 2022-08-09 08:15 | disposition home or self-care (01) ==
LOC: ORWHC2ENDO 06:03
PROVIDERS: ATTEND Internal Medicine Gastroenterology
DX: Z12.11 Encounter for screening for malignant neoplasm of colon (principal); K64.8 Other hemorrhoids; K21.9 Gastro-esophageal reflux disease without esophagitis; D50.9 Iron deficiency anemia, unspecified; I10 Essential (primary) hypertension; E78.5 Hyperlipidemia, unspecified; I47.1 Supraventricular tachycardia; E07.9 Disorder of thyroid, unspecified; N42.9 Disorder of prostate, unspecified; E11.9 Type 2 diabetes mellitus without complications; Z79.84 Long term (current) use of oral hypoglycemic drugs; Z79.82 Long term (current) use of aspirin; Z79.899 Other long term (current) drug therapy; Z88.0 Allergy status to penicillin; Z88.2 Allergy status to sulfonamides; Z88.8 Allergy status to other drugs, medicaments and biological substances
CPT/HCPCS: 88305; 45378; 43239; J2704; J2001

== ENCOUNTER → 2024-01-24 | Outpatient (CLI) | payer OTHER ==
[2024-01-24 21:49] LABS: Calcium 9.6 mg/dL (8.7-10.3); Magnesium 2.1 mg/dL (1.5-2.4)
[2024-01-24 21:50] LABS: T4, Free (Free Thyroxine) 1.54 ng/dL (0.80-1.80)
== END | disposition home or self-care (01) ==
LOC: LABWHC1 13:23
PROVIDERS: ATTEND Psychiatry & Neurology Neurology
CPT/HCPCS: 36415; 82306; 82310; 83735; 84439; 84443; 84481